=== PATIENT | male | born 1990 | race Caucasian/White ===

== ENCOUNTER 2018-02-24 08:05 | Day surgery (SDC) | payer OTHER ==
[~2018-02-24] VITALS: Ht 180.3 cm; Wt 63.5 kg
[2018-02-24] MEDS ORDERED: fentaNYL 0.05 MG/ML VIAL ONE (09:30)
[2018-02-24] MEDS ORDERED: MIDAZOLAM 2 MG/2 ML VIAL ONE ×2 (09:30)
[2018-02-24] MEDS ORDERED: LIDOCAINE 2% 100 MG/5 ML UJET TP ONE (09:31)
== END 2018-02-24 13:05 | disposition home or self-care (01) ==
LOC: MDS 08:05 → MMU 08:05 → MDS 13:05
PROVIDERS: ATTEND Internal Medicine Gastroenterology
DX: K25.9 Gastric ulcer, unspecified as acute or chronic, without hemorrhage or perforation (principal); K63.89 Other specified diseases of intestine; Z98.890 Other specified postprocedural states; Z72.89 Other problems related to lifestyle; Z88.1 Allergy status to other antibiotic agents; Z88.0 Allergy status to penicillin; Z79.899 Other long term (current) drug therapy
CPT/HCPCS: 43239; 45380; J2250; J3010; J7030